=== PATIENT | male | born 1985 | race Caucasian/White ===

== ENCOUNTER → 2017-06-03 | Outpatient (CLI) | payer OTHER | END | disposition home or self-care (01) | LOC: RAD 11:44 | DX: M25.511 Pain in right shoulder (principal) ==

== ENCOUNTER 2019-02-01 18:00 | Emergency (ER) | payer OTHER ==
[~2019-02-01] VITALS: Ht 190.5 cm; Wt 149.7 kg
[2019-02-01] MEDS ORDERED: NAPROSYN500 MG PO (18:49)
== END 2019-02-01 19:09 | disposition home or self-care (01) ==
LOC: ED 18:00
DX: K04.7 Periapical abscess without sinus (principal); F17.200 Nicotine dependence, unspecified, uncomplicated

== ENCOUNTER 2019-03-20 00:31 | Inpatient (IN) | payer SELFPAY ==
[~2019-03-20] VITALS: Ht 188 cm; Wt 152.2 kg
[~2019-03-20 00:31] MED LIST: NAPROSYN500 MG PO
[2019-03-20 00:33] VITALS: BP 158/96
[2019-03-20 01:12] LABS: BASO % 0.4 % (0.0-1.0); EOS # 0.1 10*3/uL (0.0-0.4); EOS % 1.1 % (1.0-4.0); HEMATOCRIT 44.9 % (42.0-52.0); LYMPH # 1.7 10*3/uL (1.3-4.4); LYMPH % 16.9 % (27.0-41.0); MEAN CELL VOLUME 86.2 fl (80.0-94.0); MEAN CORPUSCULAR HGB 28.8 pg (27.0-31.0); MEAN CORPUSCULAR HGB CONC 33.4 g/dl (33.0-37.0); MEAN PLATELET VOLUME 9.7 fl (9.6-12.3); MONO # 0.9 10*3/uL (0.1-1.0); MONO % 8.7 % (3.0-9.0); NEUT # 7.3 10*3/uL (2.3-7.9); NEUT % 72.7 % (47.0-73.0); PLATELET COUNT AUTOMATED 229 10*3/uL (130-400); RED BLOOD COUNT 5.21 10*6/uL (4.50-5.90); RED CELL DISTRI WIDTH 13.6 % (0-14.5); WHITE BLOOD COUNT 10.1 10*3/uL (4.8-10.8)
[2019-03-20 01:27] LABS: ALBUMIN 3.9 gm/dl (3.1-4.5); ALKALINE PHOSPHATASE 55 U/L (45-117); BUN 16 mg/dl (7-24); CHLORIDE 111 mmol/L (98-107); CREATININE 1.15 mg/dL (0.70-1.30); LIPASE 108 U/L (73-393); POTASSIUM 3.8 mmol/L (3.5-5.1); SGOT/AST 18 IU/L (3-35); SGPT/ALT 30 U/L (12-78); SODIUM 139 mmol/L (136-145); TOTAL PROTEIN 7.2 gm/dL (6.4-8.2)
[2019-03-20 03:35] VITALS: BP 139/85
[2019-03-20 08:00] VITALS: BP 102/60
[2019-03-20 14:12] LABS: BILIRUBIN NEGATIVE (NEGATIVE); BLOOD NEGATIVE (NEGATIVE); CLARITY CLEAR (CLEAR); COLOR YELLOW (YELLOW); GLUCOSE NEGATIVE (NEGATIVE); KETONE NEGATIVE (NEGATIVE); PH 7.5 (5.0-9.0)
[2019-03-20 14:13] LABS: LEUKO ESTERASE NEGATIVE (NEGATIVE); NITRITE NEGATIVE (NEGATIVE); UROBILINOGEN 0.2 E.U./dl (0.2-1.0)
[2019-03-20 14:30] LABS: EPITHELIAL CELLS 0-2; RBC 0-2 rbc/hpf (0-2); WBC 0-2 wbc/hpf (0-5)
[2019-03-20 14:31] LABS: BACTERIA TRACE
[2019-04-02] MEDS ORDERED: NORCO 5-325 TA1 EACH PO (09:11)
== END 2019-03-20 16:30 | disposition home or self-care (01) | DRG 445 ==
LOC: ED 00:31 → 4E 03:29
PROVIDERS: Emergency Medicine Emergency Medical Services; ADMIT Internal Medicine
DX: K80.62 Calculus of gallbladder and bile duct with acute cholecystitis without obstruction (principal); Z68.41 Body mass index [BMI] 40.0-44.9, adult; E87.8 Other disorders of electrolyte and fluid balance, not elsewhere classified; R73.9 Hyperglycemia, unspecified; E66.9 Obesity, unspecified; F17.290 Nicotine dependence, other tobacco product, uncomplicated; Z71.6 Tobacco abuse counseling; Z82.49 Family history of ischemic heart disease and other diseases of the circulatory system; Z82.3 Family history of stroke

== ENCOUNTER → 2019-04-02 | Day surgery (SDC) | payer BC ==
[2019-03-30 13:49] LABS: BASO % 0.6 % (0.0-1.0); EOS # 0.1 10*3/uL (0.0-0.4); EOS % 2.2 % (1.0-4.0); HEMATOCRIT 51.9 % (42.0-52.0); HEMOGLOBIN 16.7 g/dl (14.0-18.0); LYMPH # 2.1 10*3/uL (1.3-4.4); LYMPH % 33.7 % (27.0-41.0); MEAN CORPUSCULAR HGB 28.3 pg (27.0-31.0); MEAN CORPUSCULAR HGB CONC 32.2 g/dl (33.0-37.0); MEAN PLATELET VOLUME 9.4 fl (9.6-12.3); MONO # 0.8 10*3/uL (0.1-1.0); MONO % 13.1 % (3.0-9.0); NEUT # 3.2 10*3/uL (2.3-7.9); NEUT % 50.2 % (47.0-73.0); PLATELET COUNT AUTOMATED 270 10*3/uL (130-400); RED CELL DISTRI WIDTH 13.5 % (0-14.5); WHITE BLOOD COUNT 6.3 10*3/uL (4.8-10.8)
[2019-03-30 14:06] LABS: ALBUMIN 4.1 gm/dl (3.1-4.5); ALKALINE PHOSPHATASE 65 U/L (45-117); BILIRUBIN, DIRECT 0.1 mg/dL (0.0-0.2); BUN 8 mg/dl (7-24); CHLORIDE 106 mmol/L (98-107); POTASSIUM 4.5 mmol/L (3.5-5.1); SGOT/AST 14 IU/L (3-35); SGPT/ALT 37 U/L (12-78); SODIUM 139 mmol/L (136-145); TOTAL PROTEIN 7.7 gm/dL (6.4-8.2)
[~2019-04-02] VITALS: Ht 187.9 cm; Wt 152.0 kg
[~2019-04-02] MED LIST changes: +NORCO 5-325 TA1 EACH PO
[2019-04-02 07:36] VITALS: BP 132/79
[2019-04-02 09:27] VITALS: BP 143/90
[2019-04-02 09:42] VITALS: BP 141/89
[2019-04-02 09:57] VITALS: BP 121/83
[2019-04-02 10:12] VITALS: BP 129/85
[2019-04-02 10:26] VITALS: BP 132/89
== END | disposition home or self-care (01) ==
LOC: SDC 03-25 13:15 → LAB 03-30 14:00 → SDC 07:14
PROVIDERS: Surgery
DX: K80.12 Calculus of gallbladder with acute and chronic cholecystitis without obstruction (principal); E66.01 Morbid (severe) obesity due to excess calories; Z68.44 Body mass index [BMI] 60.0-69.9, adult

== ENCOUNTER 2021-05-06 10:00 | Emergency (ER) | payer OTHER ==
[~2021-05-06] VITALS: Ht 187.9 cm; Wt 161.5 kg
[2021-05-06] MEDS ORDERED: PREDNISONE50 MG PO (10:26)
== END 2021-05-06 11:03 | disposition home or self-care (01) ==
LOC: ED 10:00
DX: M54.42 Lumbago with sciatica, left side (principal)

== ENCOUNTER 2021-08-13 12:37 | Emergency (ER) | payer OTHER ==
[~2021-08-13] VITALS: Ht 182.8 cm; Wt 90.7 kg
[~2021-08-13 12:37] MED LIST changes: +PREDNISONE50 MG PO
== END 2021-08-13 13:30 | disposition home or self-care (01) ==
LOC: ED 12:37
DX: S41.111A Laceration without foreign body of right upper arm, initial encounter (principal); E66.9 Obesity, unspecified; Z68.39 Body mass index [BMI] 39.0-39.9, adult; Z79.899 Other long term (current) drug therapy; W26.8XXA Contact with other sharp object(s), not elsewhere classified, initial encounter; Y93.89 Activity, other specified; Y92.89 Other specified places as the place of occurrence of the external cause; Y99.9 Unspecified external cause status

== ENCOUNTER → 2023-11-06 | Outpatient (CLI) | payer OTHER | END | disposition home or self-care (01) | LOC: RAD 11:43 | PROVIDERS: ATTEND Nurse Practitioner Family | DX: M47.817 Spondylosis without myelopathy or radiculopathy, lumbosacral region (principal) ==